=== PATIENT | male | born 1995 | race Hispanic/Latino ===

== ENCOUNTER 2019-02-11 11:34 | Emergency (ER) | payer OTHER ==
[2019-02-11] MEDS ORDERED: Ciprofloxacin 500 MG TAB ONE (12:08)
== END 2019-02-11 12:26 | disposition home or self-care (01) ==
LOC: ER/OP 11:34
DX: Z20.811 Contact with and (suspected) exposure to meningococcus (principal)
CPT/HCPCS: 99281